=== PATIENT | female | born 1950 | race Two or more races ===

== ENCOUNTER 2017-08-12 18:59 | Emergency (ER) | payer OTHER ==
[~2017-08-12] VITALS: Ht 152.4 cm; Wt 68.0 kg
[2017-08-12 19:54] VITALS: BP 188/68
[2017-08-12 20:33] LABS: Basophils # (auto) 0 uL; Basophils % (auto) 0.6 % (0.0-2.0); Eosinophils # (auto) 0.1 uL; Eosinophils % (auto) 1.5 % (0.0-7.0); Hematocrit 37.2 % (36.0-46.0); Hemoglobin 12.4 g/dL (12.2-16.2); Lymphocytes # (auto) 2.1 uL; Lymphocytes % (auto) 31.9 % (10.0-50.0); Mean Corpuscular Hemoglobin 30.1 pg (28.0-32.0); Mean Corpuscular Hgb Conc. 33.4 g/dL (32.0-36.0); Mean Corpuscular Volume 90.3 fL (80.0-100.0); Monocytes # (auto) 0.5 uL; Platelet Count (auto) 281 10^3/uL (140-450); Red Blood Cells 4.12 10^6/uL (4.0-5.20); Red Cell Distribution Width 14.1 % (11.8-14.3); White Blood Cell 6.7 10^3/uL (4.4-10.8)
[2017-08-12 20:51] LABS: Albumin 3.7 g/dL (3.4-5.0); Anion Gap 8 (5-15); Blood Urea Nitrogen 17 mg/dL (7-18); Calcium 8.6 mg/dL (8.5-10.1); Carbon Dioxide 28 mmol/L (21-32); Chloride 103 mmol/L (98-107); Glucose 77 mg/dL (74-106); Magnesium 2.2 mg/dL (1.6-2.6); Potassium 3.6 mmol/L (3.5-5.1); Sodium 139 mmol/L (136-145)
[2017-08-12 20:53] LABS: Alanine Aminotransferase 22 U/L (13-56); Aspartate Aminotransferase 21 U/L (15-37); GFR African American 121 mL/min; GFR Non-African American 100 mL/min
[2017-08-12 20:58] LABS: Alkaline Phosphatase 109 U/L (45-117); Bilirubin, Total 0.3 mg/dL (0.2-1.0)
[2017-08-12 20:59] LABS: Urine Bacteria NONE SEEN /hpf (None Seen); Urine Blood TRACE /uL (Negative); Urine Specific Gravity 1.019 (1.001-1.035); Urine WBC 9 /hpf (0 - 5)
== END 2017-08-13 02:21 | disposition left against medical advice (07) ==
LOC: ER 19:01
DX: M79.602 Pain in left arm (principal); Z53.21 Procedure and treatment not carried out due to patient leaving prior to being seen by health care provider
CPT/HCPCS: 36415; 80053; 81001; 83735; 84443; 84484; 85025; 93005

== ENCOUNTER → 2024-03-23 | Outpatient (CLI) | payer OTHER | END | disposition home or self-care (01) | LOC: LAB 11:42 | PROVIDERS: ATTEND Family Medicine | DX: Z12.11 Encounter for screening for malignant neoplasm of colon (principal); I83.813 Varicose veins of bilateral lower extremities with pain; I73.9 Peripheral vascular disease, unspecified; G62.9 Polyneuropathy, unspecified; M79.609 Pain in unspecified limb; F32.9 Major depressive disorder, single episode, unspecified; E78.5 Hyperlipidemia, unspecified; E55.9 Vitamin D deficiency, unspecified | CPT/HCPCS: 82270 ==

== ENCOUNTER → 2024-07-28 | Outpatient (CLI) | payer OTHER ==
[2024-07-28 10:06] LABS: Alanine Aminotransferase 14 U/L (7-40); Albumin 4.4 g/dL (3.2-4.8); Alkaline Phosphatase 80 U/L (46-116); Anion Gap 7 (5-15); Aspartate Aminotransferase 20 U/L (13-40); BUN/Creatinine Ratio 17.3 (10.0-20.0); Blood Urea Nitrogen 13 mg/dL (9-23); Calcium 9.4 mg/dL (8.7-10.4); Carbon Dioxide 27 mmol/L (20-31); Glucose 90 mg/dL (74-106); Sodium 141 mmol/L (136-145); Triglycerides 67 mg/dL (< 150)
[2024-07-28 10:07] LABS: Bilirubin, Total 0.5 mg/dL (0.2-1.0); Chloride 107 mmol/L (98-107); Cholesterol 168 mg/dL (< 200); HDL Cholesterol 56 mg/dL (40-59); LDL Cholesterol 106 mg/dL (< 100); Total Protein 7.3 g/dL (5.7-8.2)
== END | disposition home or self-care (01) ==
LOC: LAB 09:11
PROVIDERS: ATTEND Family Medicine
DX: I10 Essential (primary) hypertension (principal); E11.42 Type 2 diabetes mellitus with diabetic polyneuropathy; R25.2 Cramp and spasm
CPT/HCPCS: 36415; 80053; 80061; 82043; 83036; 83735

== ENCOUNTER 2024-12-29 08:39 | Outpatient (CLI) | payer OTHER ==
[2024-12-29 10:03] LABS: Alkaline Phosphatase 95 U/L (46-116); Calcium 9.5 mg/dL (8.7-10.4); Carbon Dioxide 28 mmol/L (20-31); Glucose 99 mg/dL (74-106); Potassium 4.1 mmol/L (3.5-5.1); Triglycerides 74 mg/dL (< 150)
[2024-12-29 10:04] LABS: Alanine Aminotransferase < 9 U/L (7-40); Anion Gap 8 (5-15); Aspartate Aminotransferase 20 U/L (<34); BUN/Creatinine Ratio 19.7 (10.0-20.0); Bilirubin, Total 0.4 mg/dL (0.2-1.0); Blood Urea Nitrogen 15 mg/dL (9-23); Chloride 110 mmol/L (98-107); Cholesterol 170 mg/dL (< 200); HDL Cholesterol 48 mg/dL (40-59); LDL Cholesterol 115 mg/dL (< 100); Sodium 146 mmol/L (136-145)
== END 2024-12-29 17:00 | disposition home or self-care (01) ==
LOC: LAB 08:39
PROVIDERS: ATTEND Family Medicine
DX: R73.01 Impaired fasting glucose (principal); R73.09 Other abnormal glucose
CPT/HCPCS: 36415; 80053; 80061; 82043; 83036

== ENCOUNTER 2025-05-29 10:27 | Outpatient (CLI) | payer OTHER ==
[2025-05-29 12:28] LABS: Alanine Aminotransferase 14 U/L (7-40); Albumin 3.9 g/dL (3.2-4.8); Alkaline Phosphatase 87 U/L (46-116); Anion Gap 10 (5-15); BUN/Creatinine Ratio 17.3 (10.0-20.0); Bilirubin, Total 0.4 mg/dL (0.2-1.0); Blood Urea Nitrogen 13 mg/dL (9-23); Calcium 9.2 mg/dL (8.7-10.4); Carbon Dioxide 29 mmol/L (20-31); Chloride 104 mmol/L (98-107); Cholesterol 142 mg/dL (< 200); Glucose 85 mg/dL (74-106); HDL Cholesterol 44 mg/dL (40-59); Potassium 3.9 mmol/L (3.5-5.1); Sodium 143 mmol/L (136-145); Total Protein 7.4 g/dL (5.7-8.2); Triglycerides 74 mg/dL (< 150)
[2025-05-29 12:37] LABS: Uric Acid 4.0 mg/dL (3.1-7.8)
[2025-05-29 13:13] LABS: Urine Protein, UAD Negative (Negative)
[2025-05-29 13:28] LABS: Microalb/Creat Ratio, Urine 5.0
== END 2025-05-29 17:00 | disposition home or self-care (01) ==
LOC: LAB 10:27
PROVIDERS: ATTEND Family Medicine
DX: N18.2 Chronic kidney disease, stage 2 (mild) (principal); E78.5 Hyperlipidemia, unspecified; E55.9 Vitamin D deficiency, unspecified; G62.9 Polyneuropathy, unspecified; I73.9 Peripheral vascular disease, unspecified; F32.9 Major depressive disorder, single episode, unspecified; R73.09 Other abnormal glucose; Z12.11 Encounter for screening for malignant neoplasm of colon; Z00.00 Encounter for general adult medical examination without abnormal findings
CPT/HCPCS: 36415; 80053; 80061; 81001; 82043; 82570; 83036; 84443; 84550